=== PATIENT | male | born 1965 | race African-American/Black ===

== ENCOUNTER 2018-07-23 14:28 | Emergency (ER) | payer SELFPAY ==
[~2018-07-23 14:28] MED LIST: ISOVUE-370 76%-LOCM 1 ML ONE
[2018-07-23] MEDS ORDERED: Lorazepam 2 MG/ML VIAL ONE ×2 (14:40→15:15)
[2018-07-23 14:53] LABS: #Basophils 0.1 thou/uL (0.0-0.2); #Eosinphils 0.2 thou/uL (0.0-0.7); #Lymphocytes 2.3 thou/uL (1.20-3.40); #Monocytes 0.7 thou/uL (0.11-0.59); #Neutrophils 2.9 thou/uL (1.40-6.50); %Basophils 1.7 % (0.0-1.0); %Eosinophils 3.3 % (0.0-10.0); %Lymphocytes 37.5 % (21.0-51.0); %Monocytes 11.8 % (0.0-10.0); %Neutrophils 45.8 % (42.0-75.0); Hemoglobin 12.8 g/dL (14.0-18.0); Mean Corpuscular Hemoglobin 23.6 pg (27.0-31.0); Mean Corpuscular Volume 76.1 fL (78.0-98.0); Mean Platelet Volume 9.5 fL (7.4-10.4); Platelet Count 143 thou/uL (130-400); RBC Distribution Width 13.8 % (11.5-14.5); Red Blood Cell (RBC) Count 5.43 mill/uL (4.70-6.10); White Blood Cell (WBC) Count 6.2 thou/uL (4.8-10.8)
--- NOTE | 2018-07-23 14:56 | RAD ---
CHEST 1 VIEW: HISTORY: Pain. COMPARISON: 04/18/2016. FINDINGS: Normal cardiomediastinal silhouette when taking portable supine technique into consideration. No con solidation or masses. No definite pleural fluid. No obvious pneumothorax. IMPRESSION: No acute cardiopulmonary process. Evaluation is limited by supine technique. Repeat portable upright and/or possible 2-view chest radiograph is recommended. POS: [facility]
[2018-07-23 15:12] LABS: ALT (SGPT) 15 U/L (8-55); AST (SGOT) 20 U/L (5-34); Alkaline Phosphatase 88 U/L (40-150); Anion Gap 16 mmol/L (10-20); BUN (Urea Nitrogen) 10 mg/dL (8.4-25.7); Bilirubin, Total 0.8 mg/dL (0.2-1.2); CK (CPK) 357 U/L (30-200); Calc. Creatinine Clearance 0 mL/min (70-130); Calcium 8.6 mg/dL (7.8-10.44); Carbon Dioxide 21 mmol/L (22-29); Chloride 106 mmol/L (98-107); Estimated GFR-MDRD 56; Globulin 3.3 g/dL (2.4-3.5); Glucose 136 mg/dL (70-105); Potassium 3.6 mmol/L (3.5-5.1); Protein, Total 7.3 g/dL (6.0-8.3); Sodium 139 mmol/L (136-145)
[2018-07-23 15:17] LABS: CKMB 5.8 ng/mL (0-6.6); Troponin I 0.021 ng/mL (< 0.028)
[2018-07-23 15:31] LABS: PTT 24.5 SEC (22.9-36.1); Prothrombin Time 13.3 SEC (12.0-14.7)
[2018-07-23] MEDS ORDERED: Esmolol 2,500 MG/250 ML 250 ML ONE (16:27)
[2018-07-23] MEDS ORDERED: niCARdipine 20MG In NaCl 20 MG/200 ML BAG ONE (16:28)
[2018-07-23] MEDS ORDERED: Midazolam HCl 2 mg/2 ml Vial ONE ×2 (16:40→17:22)
--- NOTE | 2018-07-23 17:15 | CT ---
CTA AORTIC DISSECTION PROTOCOL WITH 3D REFORMATTED IMAGING 07/23/18 INDICATION: History of cocaine use, marijuana use, with chest pain. FINDINGS: There is an aortic dissection flap originating approximately 3 cm from the level of the aortic valve involving the ascending aorta, aortic arch, descending thoracic aorta, abdominal aorta and extending into both iliac arteries. There is hyperdense fluid in the pericardium suspicious for hemorrhage. There is prominent coronary artery calcifications. There is dissection extension into the celiac artery with contrast opacification seen within the comm on hepatic, left gastric and splenic arteries. There is dissection extension into the SMA with comple te occlusion of the proximal SMA. There is complete occlusion of the proximal left renal artery which originates from the false lumen. The TOAN originates off the false lumen but does appear to opacify. There is a prominent hematoma surrounding the left external iliac artery on image 196 of series 3 rosa suring 4 x 7.9 cm. There is complete occlusion of the left external iliac artery. There is reconstitu tion of flow at the level of the left common femoral artery likely through the inferior epigastric. T here is dissection flap extension into the left internal iliac artery with occlusion of the anterior branch of the left internal iliac artery. There is dissection flap extension into the right internal iliac artery with near complete occlusion of the right internal iliac artery. The right external iliac artery is patent. The right common femor al bifurcation is patent. The right SFA is patent. The contrast bolus is outrun at the level of the r ight popliteal artery and is difficult to comment on the arterial structures below this region. The l eft common femoral artery is patent. The bifurcation is patent. Left SFA is patent. The visualized as pects of the proximal left popliteal artery appear patent. The lungs are clear. There is a small hiatal hernia. No pneumothorax is demonstrated. No focal hepatic lesion is evident. The pancreas, adrenal glands, and right kidney appear within norm al limits. Spleen is normal appearing. No free fluid is evident. Unopacified large and small bowel are unremarkable appearing. No acute osseous abnormality is evident. IMPRESSION: 1. 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 There is hyperdense material seen within the pericardial sac suspicious for hemop ericardium. The flap extension at SMA completely occluding the proximal SMA. Reconstitution of flow i s seen within the distal branches of SMA likely through collaterals through the TOAN which remains pat ent. There is prominent dissection extension into the proximal celiac artery. There is dissection int o both iliac arteries with complete occlusion of the left external iliac artery with surrounding retr operitoneal hematoma seen adjacent to the left psoas at the level of the occlusion site. There is rec onstitution of flow to the left common femoral artery from collaterals. 2. Complete occlusion anterior division of the left internal iliac artery from the dissection fl ap. 3. Near complete occlusion of the right internal iliac artery. 4. Findings were discussed with Dr. Wilson at 4:45 p.m. on 07/23/18. Code CR POS: [facility]
== END 2018-07-23 18:18 | disposition short-term general hospital (02) ==
LOC: ERS 14:28
DX: I71.00 Dissection of unspecified site of aorta (principal); R41.82 Altered mental status, unspecified; R07.9 Chest pain, unspecified; I31.2 Hemopericardium, not elsewhere classified; I10 Essential (primary) hypertension; F17.210 Nicotine dependence, cigarettes, uncomplicated
CPT/HCPCS: 36415; 36430; 36556; 71045; 71275; 80053; 82553; 84484; 85025; 85610; 85730; 86850; 86900; 86901; 93005; 96365; 96366; 96374; 96375; 96376; J2060; J2250; J2270; P9016